=== PATIENT | male | born 1985 | race Caucasian/White ===

== ENCOUNTER 2016-11-14 21:42 | Emergency (ER) | payer BC ==
[~2016-11-14] VITALS: Ht 185.4 cm; Wt 66.2 kg
[2016-11-14 21:57] VITALS: TEMP 37; Ht 185.4 cm; Wt 66.2 kg
[2016-11-14] MEDS: XYLOCAINE 1%/SOD BICARB 20 ML VIAL INFIL ONE ×2 (22:07→22:13)
[2016-11-14] MEDS ORDERED: LIDOCAINE/EPINEPH/TETRACAINE 1 EA SYR EXT STA (22:09)
[2016-11-14] MEDS ORDERED: DIPHTHERIA/TETANUS/PERTUSSIS 0.5 ML SYR/VIAL IM. ONE (22:15)
[2016-11-14 23:25] VITALS: BP 118/70; PULSE 60; O2SAT 99
--- NOTE | 2016-11-14 23:54 | EMERGENCY ROOM VISIT NOTE ---
History Report prepared by Negrita: Arnol Clement Under the Supervision of: Dr. Urbano Marvin D.O. First contact with patient: 22:01 Chief Complaint: FALL Stated Complaint: FALL, CUT History of Present Illness The patient is a 31 year old male who presents to the Emergency Room to be evaluated following an episode of a fall that occurred one hour ago. He rates his pain as a 1/10. Due to ice, the patient fell backwards and to the side and hit his head on some concrete steps. He notes that he has a cut on his face. The patient denies loss of consciousness, headaches, neck pain, changes in vision, chest pain. The patient is not sure when his last tetanus shot was. Source of History: patient Onset: 1 hour ago Position: other (global) Symptom Intensity: 1/10 Quality: other (fall, cut on face) Timing: other (episode) Associated Symptoms: No LOC, No chest pain, No neck pain Note: The patient denies changes in vision. Review of Systems See HPI for pertinent positives & negatives. A total of 10 systems reviewed and were otherwise negative. Past Medical & Surgical Medical Problems: (1) Giardia Family History Patient reports no known family medical history. Social History Smoking Status: Never Smoker Marital Status: single Occupation Status: employed Current/Historical Medications No Active Prescriptions or Reported Meds Allergies Coded Allergies: Metronidazole (Verified Allergy, Unknown, HIVES AND SWELLING, 04/24/16) Physical Exam Vital Signs Date Time Temp Pulse Resp B/P Pulse Ox O2 Delivery O2 Flow Rate FiO2 11/14/16 23:25 60 16 118/70 99 11/14/16 21:57 37.0 71 20 114/78 99 Room Air Physical Exam GENERAL: alert, well appearing, well nourished, no distress, non-toxic HEAD: normal cephalic, 2 cm laceration above left eyebrow without venous oozing EYE EXAM: normal conjunctiva, PERRL and EOM's grossly intact OROPHARYNX: no exudate, no erythema, lips, buccal mucosa, and tongue normal and mucous membranes are moist EARS: TMs clear b/l NECK: supple, no nuchal rigidity, no adenopathy, non-tender CHEST: stable to compression anteriorly and posteriorly LUNGS: clear to auscultation. Normal chest wall mechanics HEART: no murmurs, S1 normal and S2 normal ABDOMEN: abdomen soft, non-tender, normo-active bowel sounds, no masses, no rebound or guarding. PELVIS: stable to compression anteriorly and posteriorly BACK: Back is symmetrical on inspection and there is no deformity, no midline tenderness, no CVA tenderness. UPPER EXTREMITIES: full active and passive range of motion of all joints without tenderness to palpation LOWER EXTREMITIES: full active and passive range of motion of all joints without tenderness to palpation NEURO EXAM: Normal sensorium, cranial nerves II-XII grossly intact, normal speech, no gross weakness of arms, no gross weakness of legs. GCS: 15. Medical Decision & Procedures Medications Administered Medications (Trade) Dose Ordered Sig/Arian Route Start Time Stop Time Status Last Admin Dose Admin Tetracaine/ Epinephrine/ Lidocaine (L.e.t. Gel 4%/ 1:100/0.5%) 1 ea NOW STAT EXT 11/14/16 22:09 11/14/16 22:11 DC 11/14/16 22:15 1 EA Diphtheria/ Pertussis/Tetanus Vacc (Adacel Inj) 0.5 ml ONCE ONCE IM. 11/14/16 22:15 11/14/16 22:16 DC 11/14/16 22:16 0.5 ML ED Course ED COURSE: Vital signs were reviewed and showed normal vitals. The patients medical record was reviewed The above diagnostic studies were performed and reviewed. ED treatments and interventions as stated above. 2201: The patient was evaluated in room A4. A complete history and physical examination was performed. 2208: L.e.t gel 4%, 1 ea EXT 2215: Adacel 0.5 ml IM 2310: Upon reevaluation, the patient is feeling much better; he has no headache and no neck pain. I discussed my findings with the patient and he understands and agrees with the treatment plan. Based on the patients age, coexisting illnesses, exam and lab findings the decision to treat as an outpatient was made. The patient remained stable while under my care. The patient appeared well at the time of discharge. Medical Decision Differential diagnoses include major intracranial, cervical, spinal, thoracic, abdominal, pelvic and neurologic injury. Fracture, contusion, sprain, strain, laceration, abrasions included as well. The patient is a 31 year old male who presents to the ED with complaints of a laceration following a fall. He notes that he slipped and fell down and hit left side of his head. He denies any headache or neck pain. Cervical spine was cleared via nexus criteria. No blood thinners. Patient is no other complaints with the exception of laceration over his left orbit. Laceration was repaired by my PA. On reevaluation patient again has no complaints. He was discharged follow with his primary care doctor. I did not image his head or cervical spine as he was completely neurologically intact with a negative nexus. Sutures should be removed in 7 days. Discussed with Pt concerning signs and symptoms to watch out for. Pt was instructed to follow up with their PCP and discussed with the patient their option to return to the ED at anytime for persistent or worsening symptoms. The appropriate anticipatory guidance and out-patient management, including indications for return to the emergency department, were explained at length to the patient and understood. Impression Primary Impression: Laceration Additional Impressions: Contusion of head Fall Scribe Attestation The scribe's documentation has been prepared under my direction and personally reviewed by me in its entirety. I confirm that the note above accurately reflects all work, treatment, procedures, and medical decision making performed by me. Departure Information Dispostion Home / Self-Care Prescriptions No Active Prescriptions or Reported Meds Referrals Jerzy Arroyo D.O.Int.Med. (PCP) Forms HOME CARE DOCUMENTATION FORM, IMPORTANT VISIT INFORMATION Patient Instructions A Signature Page, My [facility] Additional Instructions Keep wound clean and dry. Do not allow any crusting or dried blood to accumulate on sutures. If this occurs, use a 1:1 solution of hydrogen peroxide/ water on a Q-tip to clean the wound. Use an antibiotic ointment for 3-4 days, then let wound dry. Suture removal in 5-7 days. Return sooner for any signs of infection (increasing redness, swelling, drainage). Ice and elevate for swelling and pain. Ibuprofen 600 mg and Tylenol 1000 mg every 6 hrs for pain. Keep covered when in sun until sutures removed then SPF 50 or higher for one year. Vitamin E oil if desired two weeks after suture removal for reduction of scar Problem Qualifiers Additional Impressions: Contusion of head Encounter type: initial encounter Contusion of head detail: other part of head Qualified Codes: S00.83XA - Contusion of other part of head, initial encounter Fall Encounter type: initial encounter Qualified Codes: W19.XXXA - Unspecified fall, initial encounter
--- NOTE | 2016-11-16 01:52 | EMERGENCY ROOM VISIT NOTE ---
ED Visit Note I was asked to do the laceration repair on this patient. Location: face, eyebrow Total length: 3cm Complexity: simple Verbal consent was obtained after the risks and benefits were explained, including but not limited to bleeding, scarring, infection, pain, and bone/joint /nerve damage. At this time, the risks of the procedure are less than the risks of NOT performing the procedure. A time out was taken and the correct patient and site identified. The skin was prepped with betadine. The target area was anesthetized with LET. Copious irrigation was performed using NS. The skin was re-prepped with betadine and a sterile field set. The wound was explored for foreign bodies and none found. Examination revealed no injury to deep structures such as tendons, bone, or significant blood vessels. Debridement was not performed. The wound edges were approximated using 5, 6-0 simple interrupted nylon sutures. Hemostasis and excellent approximation was achieved. Antibacterial ointment and a sterile dressing applied. Detailed wound care instructions and signs and symptoms of infection reviewed with the pt. No complications and the patient tolerated the procedure well. Problem List Medical Problems: (1) Giardia Status: Resolved Current/Historical Medications No Active Prescriptions or Reported Meds Allergies Coded Allergies: Metronidazole (Verified Allergy, Unknown, HIVES AND SWELLING, 04/24/16) Vital Signs Date Time Temp Pulse Resp B/P Pulse Ox O2 Delivery O2 Flow Rate FiO2 11/14/16 23:25 60 16 118/70 99 11/14/16 21:57 37.0 71 20 114/78 99 Room Air Medications Administered Medications (Trade) Dose Ordered Sig/Arian Route Start Time Stop Time Status Last Admin Dose Admin Tetracaine/ Epinephrine/ Lidocaine (L.e.t. Gel 4%/ 1:100/0.5%) 1 ea NOW STAT EXT 11/14/16 22:09 11/14/16 22:11 DC 11/14/16 22:15 1 EA Diphtheria/ Pertussis/Tetanus Vacc (Adacel Inj) 0.5 ml ONCE ONCE IM. 11/14/16 22:15 11/14/16 22:16 DC 11/14/16 22:16 0.5 ML Departure Information Impression Primary Impression: Laceration Additional Impressions: Fall Contusion of head Dispostion Home / Self-Care Condition GOOD Prescriptions No Active Prescriptions or Reported Meds Referrals Jerzy Arroyo D.O.Int.Med. (PCP) Forms HOME CARE DOCUMENTATION FORM, IMPORTANT VISIT INFORMATION Patient Instructions A Signature Page, My [facility] Additional Instructions Keep wound clean and dry. Do not allow any crusting or dried blood to accumulate on sutures. If this occurs, use a 1:1 solution of hydrogen peroxide/ water on a Q-tip to clean the wound. Use an antibiotic ointment for 3-4 days, then let wound dry. Suture removal in 5-7 days. Return sooner for any signs of infection (increasing redness, swelling, drainage). Ice and elevate for swelling and pain. Ibuprofen 600 mg and Tylenol 1000 mg every 6 hrs for pain. Keep covered when in sun until sutures removed then SPF 50 or higher for one year. Vitamin E oil if desired two weeks after suture removal for reduction of scar
== END 2016-11-14 23:25 | disposition home or self-care (01) ==
LOC: C.EDB 21:42 → C.EDA 23:25
DX: S01.112A Laceration without foreign body of left eyelid and periocular area, initial encounter (principal); S01.91XA Laceration without foreign body of unspecified part of head, initial encounter; S00.93XA Contusion of unspecified part of head, initial encounter; W01.0XXA Fall on same level from slipping, tripping and stumbling without subsequent striking against object, initial encounter; Z23 Encounter for immunization

== ENCOUNTER → 2017-02-13 | Outpatient (CLI) | payer BC ==
[2017-02-13 17:15] LABS: BASO % 0.7 %; BASO ABS # 0.03 K/uL (0-0.2); COMPLETE YES; EOS % 11.2 %; HEMATOCRIT 40.7 % (42-52); LYMPH % 37.9 %; LYMPH ABS # 1.62 K/uL (1.2-3.4); MEAN CORPUSCULAR HEMOGLOBIN 31.4 pg (25-34); MEAN CORPUSCULAR HGB CONC 36.1 g/dl (32-36); MONO % 8.2 %; PLATELET COUNT 136 K/uL (130-400); RED BLOOD COUNT 4.68 M/uL (4.7-6.1); WHITE BLOOD COUNT 4.27 K/uL (4.8-10.8)
== END | disposition home or self-care (01) ==
LOC: C.LABBC 14:16
PROVIDERS: ATTEND Family Medicine
DX: R16.1 Splenomegaly, not elsewhere classified (principal); E53.8 Deficiency of other specified B group vitamins

== ENCOUNTER → 2017-06-15 | Outpatient (CLI) | payer BC | END | disposition home or self-care (01) | LOC: C.LABBC 12:14 | PROVIDERS: ATTEND Internal Medicine | DX: E53.8 Deficiency of other specified B group vitamins (principal) ==